=== PATIENT | male | born 1985 | race Caucasian/White ===

== ENCOUNTER 2016-12-01 10:44 | Emergency (ER) | payer MEDICAID ==
[~2016-12-01] VITALS: Ht 165.1 cm; Wt 75.0 kg
[2016-12-01 10:46] VITALS: BP 151/84; TEMP 98.7; O2SAT 99
--- NOTE | 2016-12-01 10:55 | PD ---
HPI . [place] tooth pain Chief Complaint: Oral / Dental Pain or Problem Time Seen by Provider: 10:55 Travel History International Travel<30 days: No Contact w/Intl Traveler<30days: No Traveled to known affect area: No History of Present Illness HPI 31-year-old male with history of plantar fasciitis here with complaints of wisdom tooth pain. Patient says that for about one year he has had issues with his wisdom teeth. He is complaining of right upper wisdom tooth that is cracked and causing him discomfort. He tells me that he also thinks that there might be a slight infection there as he noticed some swelling and he has pressure in the area. Today he is here in hopes of getting antibiotics for the pain. He tells me that he was given OxyContin for his plantar fasciitis, but does not like to take it because it makes him feel sick. He is requesting tramadol, which he tolerates much better. He also tells me that he's been taking way too much ibuprofen and Tylenol, which can't be good for his health. He has tried seeing a dentist, but has Medicaid from the [facility] and it is not accepted by the dentist here in [place]. He says he recently obtained enough money to see the dentist and will try to get an appointment this week. He denies any fever or chills. He has no other complaints. PFSH Past Medical History Medical History: Denies Significant Hx Social History Tobacco Use: Yes Allergies-Medications (Allergen,Severity, Reaction): Coded Allergies: No Known Allergies (Unverified , 12/01/16) Reported Meds & Prescriptions Reported Meds & Active Scripts Active Tramadol (Tramadol HCl) 50 Mg Tab 50 Mg PO Q8H PRN Clindamycin (Clindamycin HCl) 300 Mg Cap 300 Mg PO TID Review of Systems General / Constitutional: No: Fever Eyes: No: Visual changes HENT: Positive: Dental Difficulties, No: Headaches Cardiovascular: No: Chest Pain or Discomfort Respiratory: No: Shortness of Breath Gastrointestinal: No: Abdominal Pain Genitourinary: No: Dysuria Musculoskeletal: No: Pain Skin: No Rash Neurologic: No: Weakness Psychiatric: No: Depression Endocrine: No: Polydipsia Hematologic/Lymphatic: No: Easy Bruising Physical Exam Narrative GENERAL: AAO x 3, no acute distress, Well-nourished, well-developed patient. SKIN: Warm and dry. No visible rashes or bruising. mild right upper facial edema HEAD: Normocephalic and atraumatic. EYES: No scleral icterus. No injection or drainage. ENT: No nasal drainage noted. Mucous membranes pink. Airway patent. No abnormality with posterior pharynx, erythema or edema. #1 cracked, there is no visible fluid collection, no erythema, mild facial edema NECK: Supple, trachea midline. No JVD. no lymphadenopathy CARDIOVASCULAR: Regular rate and rhythm without murmurs, gallops, or rubs. RESPIRATORY: Breath sounds equal bilaterally. No accessory muscle use. No rhonchi or rales. GASTROINTESTINAL: Abdomen soft, non-tender, nondistended. EXTREMITIES: No cyanosis or edema. BACK: Nontender without obvious deformity. No CVA tenderness. PSYCH: AAO x 3, normal affect. Data Data Last Documented VS Vital Signs Date Time Temp Pulse Resp B/P Pulse Ox O2 Delivery O2 Flow Rate FiO2 12/01/16 11:00 87 12/01/16 10:46 98.7 15 151/84 99 MDM Medical Decision Making Medical Screen Exam Complete: Yes Emergency Medical Condition: Yes Medical Record Reviewed: Yes (no prior) Differential Diagnosis dentalgia, cracked wisdom tooth, early oral abscess Narrative Course 31-year-old male with history of plantar fasciitis here with complaints of wisdom tooth pain. Patient says that for about one year he has had issues with his wisdom teeth. He is complaining of right upper wisdom tooth that is cracked and causing him discomfort. He tells me that he also thinks that there might be a slight infection there as he noticed some swelling and he has pressure in the area. Today he is here in hopes of getting antibiotics for the pain. He tells me that he was given OxyContin for his plantar fasciitis, but does not like to take it because it makes him feel sick. He is requesting tramadol, which he tolerates much better. He also tells me that he's been taking way too much ibuprofen and Tylenol, which can't be good for his health. He has tried seeing a dentist, but has Medicaid from the state of [place] and it is not accepted by the dentist here in [place]. He says he recently obtained enough money to see the dentist and will try to get an appointment this week. He denies any fever or chills. He has no other complaints. Patient seen and examined. He has a cracked #1 wisdom tooth. I do not see any signs of an abscess. It's possible he may have an early one forming. I will go ahead and place him on antibiotics. He was sensitive to amoxicillin previously so I will give him clindamycin. With his increased Tylenol and ibuprofen usage I will go ahead and provide him with tramadol. I've discussed his case with Dr. Zach Hart. Recommend follow-up with a dentist as soon as possible. Patient verbalized understanding of instructions, questions were answered, and thanked me for their care. I advised them if their condition worsens, please return to the nearest emergency room for further care. Diagnosis Primary Impression: Dentalgia Additional Impression: Cellulitis of oral soft tissues Additional Instructions: Please return to emergency department if your symptoms return or worsen. Follow up with your primary care provider. Take medications as prescribed. Please see a dentist as soon as possible to have these teeth extracted. Med/Other Pt SpecificInfo: Prescription(s) given Scripts Tramadol 50 Mg Tab50 Mg PO Q8H PRN (PAIN) #6 TAB Ref 0 Prov:Zach Hart MD 12/01/16 Clindamycin 300 Mg [id number] Mg PO TID #21 CAP Prov:Zach Hart MD 12/01/16 Disposition: 01 DISCHARGE HOME Condition: Stable Kenzie Smith Dec 01, 2016 10:55
[2016-12-01] MEDS ORDERED: CLIN1CAP6 PO (11:02)
[2016-12-01] MEDS ORDERED: TRAM50TA PO (11:02)
== END 2016-12-01 11:28 | disposition home or self-care (01) ==
LOC: NEPD 10:44
DX: K08.89 Other specified disorders of teeth and supporting structures (principal); K12.2 Cellulitis and abscess of mouth; M72.2 Plantar fascial fibromatosis
CPT/HCPCS: 99282

== ENCOUNTER 2017-03-16 10:28 | Emergency (ER) | payer SELFPAY ==
[~2017-03-16] VITALS: Ht 165.1 cm; Wt 76.0 kg
[~2017-03-16 10:28] MED LIST: CLIN1CAP6 PO; TRAM50TA PO
[2017-03-16 10:30] VITALS: BP 134/87; PULSE 78; RESP 20; TEMP 98.3; O2SAT 97
[2017-03-16] MEDS ORDERED: TRAM50TA PO (10:48)
[2017-03-16] MEDS ORDERED: PENI500T PO (10:48)
--- NOTE | 2017-03-16 10:48 | PD ---
HPI Chief Complaint: Oral / Dental Pain or Problem Time Seen by Provider: 10:42 Travel History International Travel<30 days: No Contact w/Intl Traveler<30days: No Traveled to known affect area: No History of Present Illness HPI 31-year-old male here with dental pain. Patient complains of severe pain in the right maxillary posterior most molar. States that he believes his wisdom tooth is impacted. He was seen here several months ago and was treated with clindamycin and tramadol which helped temporarily. He has been attempting to get in with [facility] for oral surgery to have this tooth extracted. The pain worsened today, prompting ER visit. No facial swelling, foul discharge, fevers or chills. PFSH Past Medical History Musculoskeletal: Yes (plantar facitis) Social History Alcohol Use: Yes (on occasion) Tobacco Use: Yes Substance Use: No Allergies-Medications (Allergen,Severity, Reaction): Coded Allergies: No Known Allergies (Unverified , 03/16/17) Reported Meds & Prescriptions Reported Meds & Active Scripts Active Tramadol (Tramadol HCl) 50 Mg Tab 50 Mg PO Q6H PRN Penicillin V Potassium 500 Mg Tab 500 Mg PO Q6H 7 Days Tramadol (Tramadol HCl) 50 Mg Tab 50 Mg PO Q8H PRN Clindamycin (Clindamycin HCl) 300 Mg Cap 300 Mg PO TID Review of Systems Except as stated in HPI: all other systems reviewed are Neg Physical Exam Narrative GENERAL: Well-appearing male in no acute distress SKIN: Focused skin assessment warm/dry. HEAD: Normocephalic. EYES: No scleral icterus. No injection or drainage. ENT: No nasal bleeding or discharge. Mucous membranes pink and moist. No facial swelling. Right posterior most maxillary molar is impacted, with significant tenderness to palpation along the gingival mucosa, buccal greater than lingual. There is no palpable drainable abscess. The floor the mouth is soft. NECK: Supple without lymphadenopathy CARDIOVASCULAR: Regular rate and rhythm. RESPIRATORY: No accessory muscle use. MUSCULOSKELETAL: Normal gait NEUROLOGICAL: Awake and alert. Normal speech. PSYCHIATRIC: Appropriate mood and affect; insight and judgment normal. Data Data Last Documented VS Vital Signs Date Time Temp Pulse Resp B/P Pulse Ox O2 Delivery O2 Flow Rate FiO2 03/16/17 10:30 98.3 78 20 134/87 97 Room Air Orders Tramadol (Ultram) (03/16/17 11:00) MDM Medical Decision Making Medical Screen Exam Complete: Yes Emergency Medical Condition: Yes Medical Record Reviewed: Yes Differential Diagnosis 31-year-old male here with dental pain. Exam is consistent with dental impaction with likely periapical abscess given the degree of his gingival tenderness. There is no evidence of drainable abscess, facial cellulitis, Radhames angina. Narrative Course Patient given tramadol here for pain, prescription for home. Penicillin for home. Encouraged to follow-up with dentist. Diagnosis Primary Impression: Dental impaction Additional Impression: Periapical abscess Referrals: Dentist call for appointment Additional Instructions: Antibiotics as prescribed. You can get the antibiotics for free at [facility]. Pain medications as needed. Follow-up with dentist as discussed. Scripts Tramadol 50 Mg Tab50 Mg PO Q6H PRN (PAIN) #15 TAB Ref 0 Prov:Lainey Peterson MD 03/16/17 Penicillin V Potassium 500 Mg [id number] Mg PO Q6H 7 Days Ref 0 Prov:Lainey Peterson MD 03/16/17 Disposition: 01 DISCHARGE HOME Condition: Stable Lainey Peterson MD Mar 16, 2017 10:48
[2017-03-16] MEDS ORDERED: traMADol HCL 50 MG TAB PO ONE (11:00)
== END 2017-03-16 11:10 | disposition home or self-care (01) ==
LOC: NEPD 10:28
DX: K01.1 Impacted teeth (principal); K04.7 Periapical abscess without sinus; Z72.0 Tobacco use
CPT/HCPCS: 99284